=== PATIENT | male | born 1975 | race Caucasian/White ===

== ENCOUNTER 2020-08-31 19:35 | Inpatient (IN) | payer OTHER ==
[~2020-08-31] VITALS: Ht 175.3 cm; Wt 74.3 kg
[2020-08-31] MEDS ORDERED: HYDROmorphone 2 MG/ML, 1ML ONE (20:11)
[2020-08-31] MEDS ORDERED: ONDANSETRON 2MG/ML, 2ML ONE (20:15)
[2020-08-31] MEDS: HYDROmorphone 2 MG/ML, 1ML IVPush PRN ×2 (20:28→23:51)
[2020-08-31] MEDS ORDERED: SODIUM CHLORIDE FLUSH 10ML SYR IVF ONE (20:30)
[2020-08-31] MEDS ORDERED: ONDANSETRON 2MG/ML, 2ML IVPush ONE (20:30)
--- NOTE | 2020-08-31 21:19 | NUR ---
PT UNABLE TO AMBULATE WITHOUT SEVERE PAIN. PT TOOK 3 STEPS BEFORE FALLING BACK ON TO THE BED. MD OROURKE AWARE.
[2020-08-31 22:16] LABS: BASOPHILS % (AUTO) 0 % (0-1); EOSINOPHILS % (AUTO) 0 % (1-7); LYMPHOCYTES % (AUTO) 45 % (22-44); MEAN CORPUSCULAR HEMOGLOBIN 31.3 pg (27.5-34.5); MEAN CORPUSCULAR HGB CONC 34.2 g/dL (33.2-36.2); MEAN PLATELET VOLUME 7.7 fL (7.4-10.4); MONOCYTES % (AUTO) 5 % (2-9); NEUTROPHILS % (AUTO) 49 % (42-75); PLATELET COUNT 137 x10^3/uL (130-400); RED BLOOD COUNT 4.68 x10^6/uL (4.38-5.82); RED CELL DISTRIBUTION WIDTH 13.7 % (9.4-14.8)
[2020-08-31 22:20] LABS: MD NO
[2020-08-31 22:27] LABS: ALBUMIN 3.8 g/dL (3.4-5.0); ANION GAP 4 mmol/L (5-15); CALCIUM 8.6 mg/dL (8.5-10.1); CHLORIDE 111 mmol/L (98-107); CREATININE 1.07 mg/dL (0.7-1.3)
[2020-08-31] MEDS ORDERED: ELVI1TAB3 PO (22:28)
[2020-08-31] MEDS ORDERED: METHOCARBAMOL 500 MG TABLET PO PRN (22:30)
[2020-08-31] MEDS ORDERED: ACETAMINOPHEN 325 MG TABLET PO PRN (22:30)
[2020-08-31] MEDS ORDERED: ONDANSETRON 2MG/ML, 2ML IVPush PRN (22:30)
[2020-08-31] MEDS ORDERED: ENALAPRILAT 1.25 MG/ML, 2ML IVPush PRN (22:30)
[2020-08-31] MEDS ORDERED: HYDROcodone/APAP 5/325 TABLET PO PRN (22:30)
[2020-08-31] MEDS ORDERED: ZOLPIDEM 5MG TABLET PO PRN (22:30)
[2020-08-31] MEDS: SODIUM CHLORIDE 0.9% 1,000 ML IV SCH (22:30)
[2020-08-31] MEDS ORDERED: HYDROmorphone 1 MG/ML, 1ML INJ ONE (23:47)
[2020-09-01 00:39] VITALS: BP 120/85
[2020-09-01] MEDS ORDERED: FLUT9.9S NAS (01:03)
[2020-09-01] MEDS ORDERED: SERT25TA PO (01:03)
[2020-09-01] MEDS ORDERED: LOPE1LIQ6 PO (01:03)
[2020-09-01] MEDS ORDERED: NAPR220C62 PO (01:03)
[2020-09-01] MEDS: morphine SULFATE 10 MG/ML, 1ML IVPush PRN ×6 (03:05→21:33)
[2020-09-01 05:19] LABS: BASOPHILS % (AUTO) 0 % (0-1); EOSINOPHILS % (AUTO) 1 % (1-7); LYMPHOCYTES % (AUTO) 48 % (22-44); MEAN CORPUSCULAR HEMOGLOBIN 31.4 pg (27.5-34.5); MEAN CORPUSCULAR HGB CONC 34.6 g/dL (33.2-36.2); MEAN PLATELET VOLUME 7.4 fL (7.4-10.4); MONOCYTES % (AUTO) 5 % (2-9); NEUTROPHILS % (AUTO) 45 % (42-75); PLATELET COUNT 130 x10^3/uL (130-400); RED BLOOD COUNT 4.55 x10^6/uL (4.38-5.82); RED CELL DISTRIBUTION WIDTH 13.3 % (9.4-14.8)
[2020-09-01 05:24] LABS: INTERNATIONAL NORMALIZED RATIO 1.11 (0.93-1.1); PROTHROMBIN TIME 11.8 Seconds (9.6-11.5)
[2020-09-01 05:31] LABS: ANION GAP 4 mmol/L (5-15); CALCIUM 8.6 mg/dL (8.5-10.1); CHLORIDE 112 mmol/L (98-107); CREATININE 1.13 mg/dL (0.7-1.3)
[2020-09-01 05:32] LABS: MD NO
[2020-09-01] MEDS ORDERED: DIPHENHYDRAMINE 50 MG/ML, 1ML IVPush PRN (07:00)
[2020-09-01 08:04] VITALS: BP 128/89
[2020-09-01] MEDS: FAMOTIDINE 20 MG/2 ML IVPush SCH ×2 (08:18→20:46)
[2020-09-01] MEDS: DIPHENHYDRAMINE 50 MG/ML, 1ML IVPush SCH ×2 (08:18→16:27)
[2020-09-01] MEDS: TEMPLATE NON-FORMULARY MED. (Elviteg/Cobi/Emtric/Tenofo Ala (Genvoya Tablet) 1 TAB) HOMEMEDPO SCH (08:20)
[2020-09-01] MEDS ORDERED: SENNA/DOCUSATE TABLET PO SCH (09:00)
[2020-09-01] MEDS: SODIUM CHLORIDE 0.9% 1,000 ML IV SCH ×2 (12:15→21:34)
[2020-09-01 14:08] VITALS: BP 111/75
[2020-09-01 18:30] VITALS: BP 118/71
[2020-09-02] MEDS: DIPHENHYDRAMINE 50 MG/ML, 1ML IVPush SCH (00:37)
[2020-09-02 01:16] VITALS: BP 132/83
[2020-09-02] MEDS: morphine SULFATE 10 MG/ML, 1ML IVPush PRN ×2 (05:02→09:18)
[2020-09-02 05:41] LABS: CHLORIDE 109 mmol/L (98-107)
[2020-09-02 05:59] LABS: ALANINE AMINOTRANSFERASE 33 U/L (12-78); ALBUMIN 3.6 g/dL (3.4-5.0); ALKALINE PHOSPHATASE 48 U/L (45-117); ANION GAP 5 mmol/L (5-15); BILIRUBIN,TOTAL 0.7 mg/dL (0.2-1.0); CALCIUM 8.8 mg/dL (8.5-10.1); CREATININE 1.08 mg/dL (0.7-1.3); TOTAL PROTEIN 6.5 g/dL (6.4-8.2)
[2020-09-02] MEDS: FAMOTIDINE 20 MG/2 ML IVPush SCH (08:12)
[2020-09-02] MEDS: SODIUM CHLORIDE 0.9% 1,000 ML IV SCH (08:12)
[2020-09-02] MEDS: TEMPLATE NON-FORMULARY MED. (Elviteg/Cobi/Emtric/Tenofo Ala (Genvoya Tablet) 1 TAB) HOMEMEDPO SCH (08:12)
[2020-09-02 08:34] VITALS: BP 131/85
[2020-09-02] MEDS ORDERED: CHLORHEXIDINE 15 ML UDC ONE (10:06)
[2020-09-02] MEDS ORDERED: CHLORHEXIDINE 15 ML UDC MM ONE (10:30)
[2020-09-02] MEDS ORDERED: BUPIVACAINE/PF 0.5% ONE (10:30)
[2020-09-02] MEDS ORDERED: EPINEPHRINE 1 MG/ML, 1ML ONE (10:30)
[2020-09-02] MEDS ORDERED: FENTANYL PF 250 MCG/5ML ONE (10:42)
[2020-09-02] MEDS ORDERED: MIDAZOLAM 1 MG/ML, 2ML ONE (10:42)
[2020-09-02] MEDS ORDERED: CEFAZOLIN 1,000 MG ONE (12:08)
[2020-09-02] MEDS ORDERED: DEXAMETHASONE 4 MG/ML, 1ML ONE (12:08)
[2020-09-02] MEDS ORDERED: PROPOFOL 10 MG/ML, 20ML ONE (12:08)
[2020-09-02] MEDS ORDERED: ONDANSETRON 2MG/ML, 2ML ONE (12:08)
[2020-09-02] MEDS ORDERED: ACETAMINOPHEN 325 MG TABLET PO PRN (12:30)
[2020-09-02] MEDS ORDERED: ONDANSETRON 2MG/ML, 2ML IVPush PRN (12:30)
[2020-09-02] MEDS ORDERED: FENTANYL PF 100 MCG/2ML IV PRN (12:30)
[2020-09-02] MEDS ORDERED: PROMETHAZINE 25 MG/ML, 1ML IVPush PRN (12:30)
[2020-09-02] MEDS ORDERED: LORazepam 2 MG/ML, 1ML IVPush PRN (12:30)
[2020-09-02] MEDS ORDERED: HYDROmorphone 1 MG/ML, 1ML INJ IVPush PRN (12:30)
[2020-09-02] MEDS ORDERED: METHOCARBAMOL 1,000 MG in DEXTROSE 5% 100 ML IV PRN (12:30)
[2020-09-02] MEDS ORDERED: PROMETHAZINE 25 MG SUPP PR PRN (12:30)
[2020-09-02] MEDS ORDERED: MEPERIDINE/PF 25MG/0.5ML IVPush PRN (12:30)
[2020-09-02] MEDS ORDERED: OXYcodone 5 MG/5 ML ORAL.SOL UDC PO PRN (12:30)
[2020-09-02] MEDS ORDERED: FENTANYL PF 100 MCG/2ML ONE (12:38)
[2020-09-02] MEDS ORDERED: OXYcodone 5 MG/5 ML ORAL.SOL UDC ONE (12:38)
[2020-09-02] MEDS ORDERED: FAMOTIDINE 20 MG TABLET PO SCH (21:00)
== END 2020-09-02 18:31 | disposition home or self-care (01) | DRG 351 ==
LOC: ED 20:57 → EDIP 21:56 → 4NE 09-01 00:13
PROVIDERS: ADMIT Internal Medicine; ATTEND Internal Medicine
PROC: 0YU60JZ Supplement Left Inguinal Region with Synthetic Substitute, Open Approach (ICD-10-PCS; principal; 2020-09-02 11:00)
DX: K40.91 Unilateral inguinal hernia, without obstruction or gangrene, recurrent (principal); N17.9 Acute kidney failure, unspecified; K59.00 Constipation, unspecified; N50.819 Testicular pain, unspecified; Z21 Asymptomatic human immunodeficiency virus [HIV] infection status; Z20.828 Contact with and (suspected) exposure to other viral communicable diseases; Z82.49 Family history of ischemic heart disease and other diseases of the circulatory system; Z90.49 Acquired absence of other specified parts of digestive tract
CPT/HCPCS: 36415; 74022; 96374; 96375; 96376; 99285; S0020; 80048; 80053; 82040; 85025; 85610; 87635; G0378; J0171; J0690; J1100; J1170; J2250; J2405; J2704; J3010; C1781; J1200; J2270; J7030